=== PATIENT | male | born 2005 | race Caucasian/White ===

== ENCOUNTER 2024-06-30 09:24 | Emergency (ER) | payer OTHER, SELFPAY ==
--- NOTE | ~2024-06-30 | US_ITS ---
EXAMINATION: US SCROTUM CLINICAL INFORMATION: Injury to scrotum.. COMPARISON: None available. TECHNIQUE: A sonogram of the scrotum was performed assessing miranda-scale appearance and color Doppler flow. Spectral Doppler analysis of the arterial and venous flow were performed in the testes bilaterally. FINDINGS: RIGHT: Right testicle measures 5 x 2 x 3 cm, volume 16 mL. No focal testicular parenchymal lesions are visualized. Spectral Doppler analysis of the arterial and venous flow is normal in the right testis. Right epididymal head is normal in size from 0.2 cm cyst. Trace amount of free fluid in the scrotal sac. No prominence of the pampiniform plexus. Right epididymal Doppler flow is normal. Focal calcification in the scrotal sac. LEFT: Left testicle measures 4 x 2 x 3 cm, volume 11 mL. No focal testicular parenchymal lesions are visualized. Spectral Doppler analysis of the arterial and venous flow is normal in the left testis. Left epididymal head is normal in size. Trace amount of free fluid in the scrotal sac. No prominence of the pampiniform plexus. Left epididymal Doppler flow is normal. Focal calcification in the scrotal sac. US/US scrotum doppler IMPRESSION: No testicular torsion. Trace of hydrocele, bilaterally. No varicocele.. Electronically signed by: Felix Orellana MD 06/30/2024 10:49 AM EST
--- NOTE | ~2024-06-30 | US_ITS ---
EXAMINATION: US SCROTUM CLINICAL INFORMATION: Injury to scrotum.. COMPARISON: None available. TECHNIQUE: A sonogram of the scrotum was performed assessing miranda-scale appearance and color Doppler flow. Spectral Doppler analysis of the arterial and venous flow were performed in the testes bilaterally. FINDINGS: RIGHT: Right testicle measures 5 x 2 x 3 cm, volume 16 mL. No focal testicular parenchymal lesions are visualized. Spectral Doppler analysis of the arterial and venous flow is normal in the right testis. Right epididymal head is normal in size from 0.2 cm cyst. Trace amount of free fluid in the scrotal sac. No prominence of the pampiniform plexus. Right epididymal Doppler flow is normal. Focal calcification in the scrotal sac. LEFT: Left testicle measures 4 x 2 x 3 cm, volume 11 mL. No focal testicular parenchymal lesions are visualized. Spectral Doppler analysis of the arterial and venous flow is normal in the left testis. Left epididymal head is normal in size. Trace amount of free fluid in the scrotal sac. No prominence of the pampiniform plexus. Left epididymal Doppler flow is normal. Focal calcification in the scrotal sac. US/US scrotum IMPRESSION: No testicular torsion. Trace of hydrocele, bilaterally. No varicocele.. Electronically signed by: Felix Orellana MD 06/30/2024 10:49 AM [facility]
[2024-06-30 09:58] VITALS: BP 112/55; PULSE 54; RESP 16; TEMP 36.7; O2SAT 99; BMI 20.8
[2024-06-30 10:53] VITALS: BP 121/61; PULSE 56; RESP 17; TEMP 36.7; O2SAT 99
--- NOTE | 2024-06-30 11:07 | ED.GENADULT ---
HPI - General Adult General Chief complaint: General Medical Stated complaint: Genital pain Time Seen by Provider: 06/30/24 10:04 Source: patient, RN notes reviewed and old records reviewed Mode of arrival: ambulatory History of Present Illness ED Provider: Nirmala Guevara PA-C [facility] narrative: 18-year-old male with no significant past medical history presenting to ED complaining of bilateral testicular pain and swelling s/p being hit in the testicles with football 6 days ago. Denies fever, chills, nausea, vomiting, lesions, penile discharge, hematuria/dysuria, flank pain, concern for STI Related Data Allergies Allergy/AdvReac Type Severity Reaction Status Date / Time No Known Allergies Allergy Verified 06/30/24 10:00 Review of Systems Review of Systems: Yes all other systems are reviewed and are negative Constitutional: Constitutional: Reports as per [facility] Past Medical History Attestation statement: The following information was validated with the patient. Source: old records reviewed Social History Social History Advance Directives: No Advance Directives Information Provided: Yes Do you have a plan to hurt others: No Plan Physical Exam ED Vital Signs: Vital Signs - 24 hr 06/30/24 09:58 06/30/24 10:53 06/30/24 11:29 Temperature 98.0 F 98.1 F 98 F Pulse Rate 54 56 49 L Respiratory Rate 16 17 16 Blood Pressure 112/55 L 121/61 116/65 Pulse Oximetry 99 99 Oxygen Delivery Method Room Air Room Air Oxygen Flow Rate 98 BMI result Body Mass Index 20.8 Const General: cooperative, healthy appearing and no acute distress Orientation/consciousness: patient oriented x3 Limitations: no limitations HENIA Head: Yes normal to inspection and Yes atraumatic Ears: hearing grossly normal bilaterally General nose exam: Normal external nose present Face and sinus: Yes normal facial exam Eyes General: appearance normal, both eyes and all related structures EOM: EOMs intact bilaterally Neck Neck: Yes normal visual inspection and Yes no meningeal signs Resp Effort & Inspection: normal respiratory effort and no respiratory distress Cardio Rate: regular rate GI Inspection: Yes normal to inspection Palpation (GI): Soft to palpation, nontender, no guarding and not rigid Penis: normal penis and circumcised Meatus: meatus normal Scrotum: not erythematous, no inguinal hernias and no scrotal swelling Testes: no epidiymal tenderness, no testicular swelling and testicular tenderness bilateral Skin Rashes: no rashes Wounds: no wounds Neuro General: patient oriented x3, tone normal and no meningeal signs Cranial nerves: Yes CN's II-XII intact bilaterally Gait exam (Neuro): Normal gait present Extrem General: Yes normal to inspection Course Course Course Narrative: 1114-US scrotum doppler IMPRESSION: No testicular torsion. Trace of hydrocele, bilaterally. No varicocele. -UA negative Results discussed with patient including worrisome signs and symptoms and strict return precautions, and when to return to the emergency department. They verbalized understanding and feel safe for discharge at this time. Medical Decision Making Medical Decision Making MDM Narrative: 18-year-old male with no significant past medical history presenting to ED complaining of bilateral testicular pain and swelling s/p being hit in the testicles with football 6 days ago. On exam vital signs stable, NAD, nontoxic appearing, abdomen soft and nontender. On exam bilateral testicles with noted tenderness. No appreciable swelling/erythema/warmth, lesions. No appreciable hernias. Concern for contusion/trauma vs torsion vs hydrocele vs varicocele vs epididymitis/orchitis. Lower suspicion for STI Plan: UA, STI testing, ultrasound, re-evaluate Please refer to course for remaining clinical decision making, interpretation of labs/imaging results, and discussions with consultants and/or family members. Differential Diagnosis Differential Diagnoses: The differential diagnosis associated with the presentation includes As above Admission/Observation Consideration of admission/observation: Escalation of care including admission/observation considered Lab Data MDM Lab Attestation statement: I reviewed the patient's lab results. Labs: Lab Results 06/30/24 Range/Units 10:58 Urine Color Yellow Urine Appearance Clear Urine pH 6.5 (5.0-9.0) Ur Specific [place] 1.025 (1.005-1.025) Urine Protein Negative (Neg-Trace) mg/dL Urine Glucose (UA) Negative (Negative) mg/dL Urine Ketones Negative (Negative) mg/dL Urine Blood Negative (Negative) Urine Nitrite Negative (Negative) Ur Leukocyte Esterase Negative (Negative) Chlam trachomat DNA PCR NOT DETECTED (Not Detect.) N.gonorrhoeae DNA (PCR) NOT DETECTED (Not Detect.) Independent Interpretation I performed an independent interpretation of an: Ultrasound Radiology Impression Discussion of test interpretation with radiology: I have reviewed the radiologist's reading. External Record Review External record reviewed: Inpatient record, Office record, Outpatient record, Prior outpatient labs, Prior outpatient radiology, Primary care record and Outside ED record Tests considered The following testing was considered but not selected: As above Prescription Management I considered prescription management with: Pain Medication Chronic Conditions Patient?s care impacted by: Other Social Determinants Patient?s care significantly limited by Social Determinants of Health including: Problems related to primary support group and Other Social Determinant of Health Discharge Plan Discharge Clinical Impression: Pain in both testicles, Bilateral hydrocele Patient Disposition: Home, Self-Care Instructions: Hydrocele (ED), Testicle Pain (ED) Additional Instructions: Your urine is not infected We tested you for gonorrhea and chlamydia this is currently pending, you will be contacted with positive results only Your ultrasound shows a trace hydrocele which is small amount of fluid around testicles Please follow-up with urology as well as your doctor If her symptoms persist or worsen, pain becomes unbearable, you have increasing swelling, redness, difficulty urinating return to the ED Take Tylenol and Motrin for pain [place] [facility] [place] Interventions: ED Discharge Assessment Last Done: 06/30/24 11:29 Discharge Date/Time: 06/30/24 11:30 Print Language: Irish
[2024-06-30 11:10] LABS: Appearance Urine Clear; Color Urine Yellow; Glucose Urine UA Negative (Negative); Leukocyte Esterase Urine Negative (Negative); Nitrite Urine Negative (Negative); PH 6.5 (5.0-9.0); Specific Gravity - Urine 1.025 (1.005-1.025); Urine Blood Negative (Negative); Urine Ketones Negative (Negative); Urine Protein Negative (Neg-Trace)
[2024-06-30 11:29] VITALS: BP 116/65; PULSE 49; RESP 16; TEMP 36.6
[2024-06-30 14:06] LABS: CT PCR NOT DETECTED (Not Detect.); NG PCR NOT DETECTED (Not Detect.)
== END 2024-06-30 11:30 | disposition home or self-care (01) ==
PROVIDERS: Physician Assistant; Emergency Provider Emergency Medicine
DX: N50.812 Left testicular pain (principal); N50.811 Right testicular pain; N43.2 Other hydrocele
CPT/HCPCS: 76870; 81003; 87491; 87591; 93975; 99283; 99284

== ENCOUNTER → 2024-06-30 10:17 | Outpatient (BNV) | payer OTHER, SELFPAY | PROVIDERS: Visit Provider Radiology Diagnostic Radiology | DX: N43.3 Hydrocele, unspecified (principal) | CPT/HCPCS: 76870; 93975 ==

== ENCOUNTER 2024-08-27 14:42 | Outpatient (AMB) | payer OTHER, SELFPAY ==
--- NOTE | 2024-08-27 13:58 | MHC.OFFVIS ---
Intake Visit Reasons: bilateral hydrocele Intake Note: New patient is present to establish care for BILATERAL Any Urology Medications:NONE Antibiotic Allergy:NONE Blood Thinner:NONE PVR: [employer] Required: No Allergies No Known Allergies Allergy (Verified 08/27/24 14:55) Medication List - Last Reconciled 08/27/24 by Manuela Ruggiero MD No Known Home Meds HPI Comments Details: Arnel was seen in the ED on 06/30/24 for testicular pain. He states he was hit with a foot ball in the scrotum. He is doing better now. US scrotum trace bilateral hydroceles, I have discussed this finding is not clinically significant. He denies issues with erections or urination. Review of Systems Const All systems reviewed & are unremarkable except as noted in HPI and below Reports no additional complaints Eyes Reports no additional complaints ENT Reports no additional complaints Card Reports no additional complaints Resp Reports no additional complaints GI Reports no additional complaints Reports as per HPI Musc Reports no additional complaints Skin/Breast Reports system reviewed and no additional complaints, except as documented Neuro Reports no additional complaints Psych Reports no additional complaints Endo Reports no additional complaints Amando/Lymph Reports no additional complaints Aller/Immun Reports no additional complaints Physical Exam Const General: healthy appearing, no acute distress and well developed Orientation/consciousness: patient oriented x3 HEENT Head: Yes normocephalic and Yes atraumatic Eyes Conjunctivae: conjunctivae normal Neck Neck: Yes normal visual inspection Chest Chest palpation & inspection: normal inspection of the chest Resp Effort & Inspection: normal respiratory effort Cardio Rate: regular rate GI Inspection: Yes normal to inspection Palpation (GI): Soft to palpation Other: bilateral testes nontender Penis: normal penis and circumcised Scrotum: scrotum normal Neuro General: patient oriented x3 Extrem General: No pedal edema Psych Appearance: grossly normal Affect: normal affect Results AMB Urinalysis, Automated UA Leukoctes 0 Brigitte/uL Last Edit by SONU Meza on 08/27/24 15:05 UA Nitrite Negative Last Edit by SONU Meza on 08/27/24 15:05 UA Urobilinogen 0.2 mg/dL Last Edit by SONU Meza on 08/27/24 15:05 UA Protein 15 mg/dL Last Edit by SONU Meza on 08/27/24 15:05 UA pH 6.0 Last Edit by SONU Meza on 08/27/24 15:05 UA Blood 0 Ace/uL Last Edit by SONU Meza on 08/27/24 15:05 UA Specific [place] 1.025 Last Edit by SONU Meza on 08/27/24 15:05 UA Ketone Negative Last Edit by SONU Meza on 08/27/24 15:05 UA Bilirubin 0 mg/dL Last Edit by SONU Meza on 08/27/24 15:05 UA Glucose 0 mg/dL Last Edit by SONU Meza on 08/27/24 15:05 Results Reviewed Results Reviewed: Date of Service: 06/30/24 US SCROTUM CLINICAL INFORMATION: Injury to scrotum.. COMPARISON: None available. TECHNIQUE: A sonogram of the scrotum was performed assessing miranda-scale appearance and color Doppler flow. Spectral Doppler analysis of the arterial and venous flow were performed in the testes bilaterally. FINDINGS: RIGHT: Right testicle measures 5 x 2 x 3 cm, volume 16 mL. No focal testicular parenchymal lesions are visualized. Spectral Doppler analysis of the arterial and venous flow is normal in the right testis. Right epididymal head is normal in size from 0.2 cm cyst. Trace amount of free fluid in the scrotal sac. No prominence of the pampiniform plexus. Right epididymal Doppler flow is normal. Focal calcification in the scrotal sac. LEFT: Left testicle measures 4 x 2 x 3 cm, volume 11 mL. No focal testicular parenchymal lesions are visualized. Spectral Doppler analysis of the arterial and venous flow is normal in the left testis. Left epididymal head is normal in size. Trace amount of free fluid in the scrotal sac. No prominence of the pampiniform plexus. Left epididymal Doppler flow is normal. Focal calcification in the scrotal sac. IMPRESSION: No testicular torsion. Trace of hydrocele, bilaterally. No varicocele.. Assessment & Plan Assessment & Plan (1) Bilateral hydrocele: Code(s): N43.3 - Hydrocele, unspecified Category: Medical (2) Testicular pain: Code(s): N50.819 - Testicular pain, unspecified Category: Medical Plan Testicular pain resolved, bilateral hydrocele clinically not significant. FU prn Orders: Orders AMB Urinalysis Automated Today Z13.9 - Encounter for screening, unspecified Patient Instructions: The patient had an opportunity to ask questions regarding treatment plan. The patient expressed understanding and agreement with the above treatment plan. The patient is aware they should contact our office by phone for worsening of their current condition or the appearance of new symptoms. Compliance is encouraged with any medications and followup testing that is ordered. It is a privilege to be allowed the opportunity to participate in the urologic care of your patient. If you have any questions or concerns regarding treatment for the above conditions please do not hesitate to contact me. The office telephone contact is [phone]. This note is constructed in part using voice recognition software. While every effort has been made to ensure accuracy design intern errors may have been included. Yours sincerely, Manuela Ruggiero MD Coding Level of Care Code New Pt Level 3 (00169) Diagnoses Bilateral hydrocele N43.3 Testicular pain N50.819
== END 2024-08-27 15:25 | disposition home or self-care (01) ==
PROVIDERS: Visit Provider Urology
DX: N43.3 Hydrocele, unspecified (principal); N50.819 Testicular pain, unspecified; Z13.9 Encounter for screening, unspecified
CPT/HCPCS: 99203

== ENCOUNTER → 2024-08-27 14:42 | Outpatient (BNVA) | payer OTHER, SELFPAY | PROVIDERS: Visit Provider Urology | DX: N43.3 Hydrocele, unspecified (principal); N50.819 Testicular pain, unspecified | CPT/HCPCS: 81003; 99202 ==